=== PATIENT | male | born 1980 | race Caucasian/White ===

== ENCOUNTER 2017-02-27 18:29 | Emergency (ER) | payer SELFPAY ==
[~2017-02-27] VITALS: Ht 180.3 cm; Wt 113.6 kg
[2017-02-27 18:33] VITALS: TEMP 98.6
[2017-02-27 19:00] LABS: BASO % 0.3 % (0.0-2.0); EOS # 0.2 (0.0-0.7); EOS % 1.4 % (0-4.0); GRAN # 7.9 (1.4-6.5); GRAN % 72.7 % (42.2-75.2); HEMATOCRIT 41.6 % (42.0-52.0); HEMOGLOBIN 14.9 g/dl (13.5-18.0); LYMPH # 2.1 (1.2-3.4); MEAN CELL VOLUME 83 fl (80.0-100.0); MEAN CORPUSCULAR HEMOGLOBIN 30 pg (27.0-31.0); MEAN CORPUSCULAR HGB CONC 36 g/dl (33.0-37.0); MEAN PLATELET VOLUME 8.7 fl (7.4-10.4); MONO # 0.7 (0.1-0.6); MONO % 6.4 % (1.7-9.3); PLATELET COUNT 257 K/mm3 (130-400); RED BLOOD COUNT 4.99 M/mm3 (4.20-5.60); REDCELL DISTRIBUTION WIDTH-CV 12.3 % (11.5-14.5); WHITE BLOOD COUNT 10.9 K/mm3 (4.8-10.8)
[2017-02-27 19:10] LABS: ALBUMIN 4.4 gm/dL (3.5-5.0); CALCIUM 9.3 mg/dL (8.4-10.2); CREATININE, serum 0.87 mg/dL (0.66-1.25); POTASSIUM 3.9 mmol/L (3.4-5.0); TOTAL PROTEIN 7.9 gm/dL (6.4-8.2)
[2017-02-27 20:03] VITALS: BP 118/78; PULSE 76
== END 2017-02-27 20:06 | disposition home or self-care (01) ==
LOC: COL.ER 18:29
PROVIDERS: Emergency Medicine
DX: R41.82 Altered mental status, unspecified (principal); R20.2 Paresthesia of skin; F17.200 Nicotine dependence, unspecified, uncomplicated; F12.10 Cannabis abuse, uncomplicated; Z98.890 Other specified postprocedural states
CPT/HCPCS: J1885

== ENCOUNTER 2018-08-02 14:14 | Emergency (ER) | payer BC ==
[~2018-08-02] VITALS: Ht 177.8 cm; Wt 118.2 kg
[2018-08-02 14:23] VITALS: BP 122/95; PULSE 75; TEMP 97.2
[2018-08-02] MEDS ORDERED: ROXICODONE 55 MG/TAB PO (14:59)
[2018-08-02] MEDS ORDERED: BACTROBAN22 TOP ×2 (14:59)
[2018-08-02] MEDS ORDERED: DOXYCYCLINE 10100 MG PO (14:59)
[2018-08-02] MEDS ORDERED: HIBICLENS4% TP (15:10)
== END 2018-08-02 15:16 | disposition home or self-care (01) ==
LOC: COL.ER 14:14
DX: L02.214 Cutaneous abscess of groin (principal)